=== PATIENT | male | born 1970 | race Caucasian/White ===

== ENCOUNTER 2020-01-29 10:45 | Emergency (ER) | payer OTHER, SELFPAY ==
[2020-01-29 10:47] VITALS: BP 128/79; PULSE 103; RESP 20; TEMP 36.8; O2SAT 91; BMI 31.5
--- NOTE | 2020-01-29 11:01 | RAD_ITS ---
STUDY: X-RAY CHEST REASON FOR EXAM: Male, 49 years old. PT WITH COUGH,BODY ACHES,SOB, FEVER AT HOME. TECHNIQUE: Single AP portable view of the chest. COMPARISON: None. FINDINGS: EKG electrodes are seen. Patchy infiltrates are seen in the left upper and left lower lobes as well as at the right lung base. Mild increased markings are also seen in the right upper lobe. There is no demonstrated pleural abnormality. Normal size heart. Normal mediastinum and alex. Normal visualized pulmonary arteries. Normal visualized aortic arch and descending thoracic aorta. Normal visualized thoracic spine. Normal visualized ribs, clavicles, and shoulders. There is no demonstrated abnormality of the visualized soft tissue structures of the upper abdomen. RAD/Chest 1 View (Portable) IMPRESSION: Bilateral patchy infiltrates. Follow-up is recommended. Electronically Signed: Marino Garcia, at 12:24 EST , Service support ,
--- NOTE | 2020-01-29 11:03 | ED.DCSUM_ITS ---
History of Present Illness Chief Complaint: Shortness of Breath Informant: Patient Onset: Days Context: Gradual Onset Timing: Continuous Current Severity: Moderate Maximum Severity: Moderate Narrative: Patient is a 49-year-old male with no significant medical history who takes no daily medications who presents to the emergency department with Covid type symptoms. He states he has been sick for about 3 or 4 days. He states that there was someone that he was exposed to, but it was indirect. He states he had a scant cough. He states that if he exerts himself, he feels like he cannot catch his breath. He is also had some abdominal cramping and diarrhea. He had low-grade fever. He also admits to fatigue and myalgias. He has had diminished lack of appetite. Patient has no history of immunosuppression. He has no history of underlying lung disease. Prior similar symptoms: No Recent Illness/Hospitalization: No Past Medical History - Allergies and Home Meds Allergies/Adverse Reactions: Allergies No Known Allergies Allergy (Verified 01/29/20 10:49) Primary Care Physician: Ryder Mccracken DO [Primary Care Provider] - Prior records reviewed: Yes Past Medical History: None Surgical History: no surgical history Review of Systems General: Reports: Chills, Fever. Denies: Sweats Eyes: Denies: Visual changes - bilaterally, Diplopia ENT: Denies: Rhinorrhea, Sore throat Cardiovascular: Denies: Chest pain, Palpitations Respiratory: Reports: Cough. Denies: Dyspnea, Dyspnea on exertion Gastrointestinal: Reports: Nausea, Diarrhea. Denies: Abdominal pain, Vomiting, Melena, Hematochezia Genitourinary: Denies: Dysuria, Hematuria, Frequency Musculoskeletal: Denies: Back pain, Extremity Pain Skin: Denies: Rash, Wounds Neurological: Denies: Headache, Weakness, Numbness Physical Exam Vital Signs/Narrative: Vital Signs Temp Pulse Resp BP Pulse Ox 01/29/20 10:47 98.2 F 103 H 20 H 128/79 H 91 Inital Vital Signs reviewed: Yes General: Well nourished, Well developed, No Acute Distress Head: Normocephalic, Atraumatic Eyes: Perrl, EOMI ENT: Moist mucous membranes, No rhinorrhea Neck: Supple, Nontender Cardiovascular: Regular rate, Regular rhythm, No murmurs Respiratory: No distress, CTA bilaterally, Chest nontender Abdomen: Soft, Nontender, Nondistended, Normal bowel sounds Back: Nontender, Normal Inspection Extremities: Nontender, No edema Skin: Normal color, No rash Neurological: Alert, Oriented x3, Cranial nerves II-XII grossly intact, Normal Strength, Normal Sensation Psychological: Normal affect, Normal Mood Diagnostic/Tx/Re-eval Clinical Impression(s) from Imaging Studies Chest X-Ray 01/29/20 11:01 IMPRESSION: Bilateral patchy infiltrates. Follow-up is recommended. Electronically Signed: Marino Garcia, at 12:24 EST , Service support , Abnormal Lab Results 01/29/20 01/29/20 01/29/20 11:32 11:32 11:32 WBC 8.7 RBC 4.57 L Hgb 13.6 Hct 40.7 MCV 89.1 MCH 29.8 MCHC 33.4 RDW Std Deviation 42.5 RDW Coeff of [place] 13.1 Plt Count 223 MPV 10.7 Immature Gran % (Auto) 0.300 Neut % (Auto) 84.0 H Lymph % (Auto) 9.5 L [place] % (Auto) 6.1 Eos % (Auto) 0.0 Baso % (Auto) 0.1 Absolute Neuts (auto) 7.3 Absolute Lymphs (auto) 0.82 L Nucleated RBC % 0 D-Dimer Quant (PE/DVT) 0.44 Sodium 138 Potassium 4.0 Chloride 106 Carbon Dioxide 26.0 Anion Gap 6 BUN 11 Creatinine 0.84 Estim Creat Clear Calc 108.63 Est GFR (MDRD) Af Amer 125 Est GFR (MDRD) Non-Af 103 BUN/Creatinine Ratio 13.2 Glucose 97 Lactic Acid Calcium 8.2 L Total Bilirubin 0.30 AST 30 ALT 36 Alkaline Phosphatase 68 Total Protein 7.7 Albumin 3.1 L Globulin 4.6 H Albumin/Globulin Ratio 0.7 L 01/29/20 11:32 WBC RBC Hgb Hct MCV MCH MCHC RDW Std Deviation RDW Coeff of [place] Plt Count MPV Immature Gran % (Auto) Neut % (Auto) Lymph % (Auto) [place] % (Auto) Eos % (Auto) Baso % (Auto) Absolute Neuts (auto) Absolute Lymphs (auto) Nucleated RBC % D-Dimer Quant (PE/DVT) Sodium Potassium Chloride Carbon Dioxide Anion Gap BUN Creatinine Estim Creat Clear Calc Est GFR (MDRD) Af Amer Est GFR (MDRD) Non-Af BUN/Creatinine Ratio Glucose Lactic Acid 1.1 Calcium Total Bilirubin AST ALT Alkaline Phosphatase Total Protein Albumin Globulin Albumin/Globulin Ratio - Medical Decision Making Clinically, the patient symptoms are consistent with COVID-19. He was not hypoxic. He was given Tylenol and a breathing treatments. Chest x-ray shows s cant infiltrates. Labs are obtained and are unremarkable. D-dimer was negative. Lactic acid was negative. On reevaluation, the patient is feeling improved. I did give him Decadron. He was 91% in the room, but when he gets up to move around, his oxygen does increase. At this point, I do not feel that he requires hospitalization. I did spend time counseling on concerning symptoms and reasons to return. The patient will be discharged home. Impression 1. COVID-19 2. Generalized malaise ED Disposition - Plan for ED Patient: Instructions: Coronavirus Disease 2019 (COVID-19): Overview, Coronavirus Disease 2019 (COVID-19): Caring for Yourself or Others Prescriptions: Dexamethasone [Decadron] 6 mg PO DAILY #5 tab Prescription Printed Ondansetron [Zofran Odt] 4 mg PO Q8H PRN PRN #10 tab PRN Reason: Nausea Prescription Printed Referrals: Ryder Mccracken DO [Primary Care Provider] -
[2020-01-29 11:19] VITALS: BP 116/74; PULSE 99; RESP 29; TEMP 36.8; O2SAT 92
[2020-01-29] MEDS: Acetaminophen 500 MG Tablet 1000 MG PO (11:23)
[2020-01-29 11:42] VITALS: O2SAT 91
[2020-01-29] MEDS: 0.9% Normal Saline 1,000 ML 125 ML IV (11:42)
[2020-01-29 11:55] LABS: Absolute Lymphocyte Count 0.82 X10^3/uL (0.83-4.51); Absolute Neutrophil Count 7.3 X10^3/uL (2.0-7.7); Basophil# 0.01 X10^3/uL; Basophil% 0.1 % (0-1); Hematocrit 40.7 % (40-54); Hemoglobin 13.6 g/dL (13.0-16.5); Lymphocyte # 0.82 X10^3/ul (4.0); Lymphocyte % 9.5 % (19-41); Mean Corp Hgb Conc 33.4 g/dL (32-36); Mean Corpuscular Hgb 29.8 pg (27.0-32.0); Mean Corpuscular Volume 89.1 fL (80-94); Mean Platelet Vol. 10.7 fl (6.2-12.0); Monocyte# 0.53 X10^3/uL; Monocyte% 6.1 % (0-10); NRBC Flagged by Analyzer 0 % (0-5); Neutrophil # 7.28 X10^3/uL (2.7-7.7); Platelet Count 223 K/mm3 (150-450); RBC Distribution Width CV 13.1 % (11.6-14.6); RBC Distribution Width SD 42.5 fl (35.1-43.9); Red Blood Count 4.57 M/mm3 (4.6-6.2); White Blood Count 8.7 K/mm3 (4.4-11.0)
[2020-01-29 12:01] LABS: D-Dimer Quantitative (DVT/PE) 0.44 FEU/ug/m (0.27-0.49)
[2020-01-29 12:06] LABS: ALB/GLOB Ratio 0.7 RATIO (0.9-2.4); AST(SGOT) 30 U/L (15-37); Alanine Aminotransfer ALT/SGPT 36 U/L (16-61); Albumin, Serum 3.1 g/dL (3.2-5.0); Alkaline Phosphatase 68 U/L (45-117); Anion Gap 6 (5-15); BUN 11 mg/dL (7-18); BUN/Creat Ratio 13.2 RATIO (10-20); Calcium,Total 8.2 mg/dL (8.5-10.1); Chloride 106 mmol/L (98-107); Creatinine, Serum 0.84 mg/dL (0.70-1.30); EST Glomerular Filtration Rate 103 mL/min (>60); Est Glom Filt Rate - Afr Amer 125 mL/min (>60); Estimated Creatinine Clearance 108.63 ml/min; Globulin 4.6 g/dL (2.2-4.2); Glucose 97 mg/dL (74-106); Protein, Total 7.7 g/dL (6.4-8.2); Sodium Level 138 mmol/L (136-145)
[2020-01-29 12:15] LABS: Lactic Acid 1.1 mmol/L (0.4-1.9)
[2020-01-29] MEDS: dexAMETHasone 10 MG/ML Vial 6 MG IV (13:16)
[2020-01-29 13:21] VITALS: BP 117/77; PULSE 94; RESP 24; O2SAT 92
== END 2020-01-29 13:22 | disposition home or self-care (01) ==
LOC: ED 11:56
PROVIDERS: Emergency Provider Emergency Medicine; PCP Student in an Organized Health Care Education/Training Program
DX: U07.1 COVID-19 (principal); R53.81 Other malaise
CPT/HCPCS: 71045; 80053; 83605; 85025; 85379; 87040; 87426; 96361; 96374; 99285; J7030; A4216